=== PATIENT | female | born 1940 | race Caucasian/White ===

== ENCOUNTER → 2020-07-30 13:52 | Outpatient (CLI) | payer MEDICARE, SELFPAY ==
--- NOTE | 2020-07-30 14:03 | XR_ITS ---
PROCEDURE: XR CHEST 2V CLINICAL HISTORY: SOB COMPARISON: No exams were available for comparison FINDINGS: Mild cardiomegaly without failure. The upper trachea is slightly deviated toward the left. No lobar consolidation or collapse. On the lateral view there is focal increased density at the upper thoracic spine region possibly related overlying bony structures. Sclerotic lesion of the T3 or bony hypertrophy/osteophyte formation is a consideration. IMPRESSION: 1. Mild cardiomegaly. 2. Sclerotic density overlies the upper thoracic spine on the lateral view possibly due to summation artifact versus sclerotic lesion of T3. Chest CT may provide further evaluation if clinically warranted Dictated by: Kevyn Soriano MD 07/30/2020 14:48 Kevyn Soriano MD in [facility] 07/30/2020 14:48
== END ==
PROVIDERS: PCP Nurse Practitioner Family; Visit Provider Nurse Practitioner Family
DX: R06.02 Shortness of breath (principal)
CPT/HCPCS: 71046

== ENCOUNTER → 2020-09-03 09:43 | Outpatient (CLI) | payer MEDICARE, SELFPAY ==
[2020-09-03 10:30] VITALS: PULSE 78
== END ==
PROVIDERS: PCP Nurse Practitioner Family; Visit Provider Nurse Practitioner Family
DX: R06.02 Shortness of breath (principal)
CPT/HCPCS: 94060; 94640

== ENCOUNTER → 2020-09-05 12:44 | Outpatient (CLI) | payer MEDICARE, SELFPAY ==
--- NOTE | 2020-09-05 12:57 | CT_ITS ---
PROCEDURE: CT CHEST WO CON CLINICAL INDICATION: ABNORMAL CXR Follow-up abnormal chest x-ray, shortness of breath COMPARISON: CR XR CHEST 2V from 07/30/2020 TECHNIQUE: Axial images obtained with sagittal and coronal reformats. All CT scans at the facility use one or more dose reduction, viz: automated exposure control, ma/kV adjustment per patient size (including targeted exams where dose is matched to indication, i.e. head), or iterative reconstruction technique. FINDINGS: HEART AND MEDIASTINAL STRUCTURES: The right lobe of the thyroid gland is enlarged and heterogeneous and may be better evaluated with ultrasound. The trachea is somewhat shifted toward the left by approximately 7 mm due to the enlarged right lobe of the thyroid gland. The right lobe measures at least 4 cm cephalad caudad and 2.6 cm transverse. This could also be related to a thyroid mass. There is diffuse calcification of the aortic arch and there are coronary artery calcifications. The ascending aorta is 3.8 x 3.5 cm. There is mild cardiomegaly. No pericardial effusion apparent LUNGS AND PLEURAL SPACES: Scattered faint subpleural nodules are present in the right apex and in the right upper lobe posteriorly with some associated bronchial thickening. There are few faint nodular opacities in the right lower lobe posteriorly. Scattered faint opacities are present in the left lower lobe.. No lobar consolidation or collapse. No pleural effusions. BONY STRUCTURES: There is sclerosis of the endplates at T3-T4 with endplate osteophytes accounting for the radiographic abnormality. No pulmonary mass evident at this region. There are mild degenerative changes in the lower thoracic spine. There are few scattered small axillary lymph nodes. UPPER ABDOMEN: Unremarkable. ADDITIONAL FINDINGS: No other significant abnormalities. IMPRESSION: 1. Enlarged right lobe of the thyroid gland versus thyroid mass. Suggest ultrasound for further evaluation. 2. Prominent sclerosis of the endplates at T3-T4 with endplate osteophytes accounting for the radiographic abnormality. 3. Scattered faint small nodular opacities in the right upper lobe, right lower lobe, and left lower lobe. These are nonspecific and could be post inflammatory/infectious. One cannot exclude the possibility of small metastatic foci. Suggest 3 month follow-up to confirm stability. The Dictated by: Kevyn Soriano MD 09/06/2020 10:29 Kevyn Soriano MD in [facility] 09/06/2020 10:29
== END ==
PROVIDERS: PCP Nurse Practitioner Family; Visit Provider Nurse Practitioner Family
DX: R93.89 Abnormal findings on diagnostic imaging of other specified body structures (principal)
CPT/HCPCS: 71250

== ENCOUNTER → 2020-10-01 10:59 | Outpatient (CLI) | payer MEDICARE, SELFPAY ==
--- NOTE | 2020-10-01 11:02 | US_ITS ---
PROCEDURE: US THYROID CLINICAL INDICATION: ENLARGED THYROID COMPARISON: No exams were available for comparison FINDINGS: Thyroid echogenicity and echotexture is normal. In the right thyroid lobe there is a 2.3 centimeter complex cystic nodule longer than tall with no calcifications within it consistent with a TIRADS 3 lesion. In the right thyroid lobe there is also a solid nodule measuring 3.8 centimeters, which is longer than tall but has a few calcifications within it. This is consistent with a TIRADS 4 lesion. Ultrasound-guided fine needle aspiration of both of these nodules would be recommended. There are a few tiny cysts and a few small subcentimeter nodules in the left thyroid lobe. Thyroid isthmus region is normal. No abnormal vascularity. Right thyroid lobe measures 5.8 x 3.3 x 2.8 cm and the left thyroid lobe 3.2 x 1 x 1 cm. IMPRESSION: Two nodules in the right thyroid lobe, 1 measures 2.3 centimeters and is consistent with a TIRADS 3 lesion, the other measures 3.8 centimeters and is consistent with a TIRADS 4 lesion. Ultrasound-guided fine needle aspiration of both of the right thyroid lobe nodules is recommended. A few tiny cysts and a few small subcentimeter nodules in the left thyroid lobe. Dictated by: Justin Loredo 10/01/2020 12:00 Justin Loredo in [facility] 10/01/2020 12:00
== END ==
PROVIDERS: PCP Nurse Practitioner Family; Visit Provider Nurse Practitioner Family
DX: E04.9 Nontoxic goiter, unspecified (principal)
CPT/HCPCS: 76536

== ENCOUNTER → 2021-03-12 12:35 | Outpatient (CLI) | payer MEDICARE, SELFPAY ==
[2021-03-12 12:40] LABS: Adenovirus F 40/41, stool Not Detected (NotDetected); Astrovirus Not Detected (NotDetected); Campylobacter Not Detected (NotDetected); Clostridium Difficile A/B, PCR Not Detected (NotDetected); Cryptosporidium Not Detected (NotDetected); Cyclospora Cayetanesis Not Detected (NotDetected); Entamoeba histolytica Not Detected (NotDetected); Enteroaggregative E coli Not Detected (NotDetected); Enteropathogenic E coli Not Detected (NotDetected); Enterotoxigenic E coli Not Detected (NotDetected); Giardia lamblia Not Detected (NotDetected); Norovirus Not Detected (NotDetected); Plesimonas Shigalloides, PCR Not Detected (NotDetected); Rotavirus A Not Detected (NotDetected); Salmonella, PCR Not Detected (NotDetected); Sapovirus Not Detected (NotDetected); Shiga-like toxin E coli Not Detected (NotDetected); Shigella Enterovasive E coli Not Detected (NotDetected); Vibrio Cholerae Not Detected (NotDetected); Vibrio, PCR Not Detected (NotDetected); Yersinia Entercolitica, PCR Not Detected (NotDetected)
[2021-03-12 13:03] LABS: Basophils # 0.1 K/mm3 (0-0.2); Basophils % 0.8 % (0.1-2.0); Eosinophils # 0.2 K/mm3 (0.0-0.4); Eosinophils % 3.1 % (0.1-12.0); Hematocrit 37.2 % (37.0-47.0); Hemoglobin 12.2 g/dL (12.2-16.2); Lymphocytes # 1.8 K/mm3 (0.7-4.5); Lymphocytes % 25.1 % (10-50); Mean Corpuscular HGB Conc 32.8 g/dL (31.8-35.4); Mean Corpuscular Hemoglobin 28.8 pg (27.0-31.2); Mean Corpuscular Volume 87.9 fl (81-99); Mean Platelet Volume 8.3 fl (7.4-10.4); Monocytes # 0.6 K/mm3 (0.1-1.0); Monocytes % 8.1 % (1.7-9.3); Neutrophils # 4.4 K/mm3 (1.8-7.8); Neutrophils % 62.8 % (37.0-80.0); Platelet Count 289 K/mm3 (142-424); Red Blood Count 4.23 M/mm3 (4.20-5.40); Red Cell Distribution Width 15.4 % (11.5-17.5)
[2021-03-12 15:09] LABS: Albumin/Globulin Ratio 1.5 (1.1-1.8); Alkaline Phosphatase 81 U/L (38-126); Anion Gap 10.3 mEq/L (5-15); Aspartate Amino Transferase 20 U/L (14-36); Bilirubin,Total 0.6 mg/dl (0.2-1.3); Blood Urea Nitrogen 13 mg/dl (7-17); Calcium 8.9 mg/dl (8.4-10.2); Carbon Dioxide 31 mmol/L (22.0-30.0); Chloride 104 mmol/L (98-107); Estimated Glomerular Filt Rate 96 ml/min (>60); GFR (African American) 116 ML/MIN (>60); Globulin 2.7 g/dL (1.3-3.2); Glucose 99 mg/dl (74-100); Potassium 3.3 mmoL/L (3.5-5.1); Sodium 142 mmol/L (136-145); Total Protein,Serum 6.7 g/dl (6.3-8.2)
[2021-03-12 15:14] LABS: Alanine Aminotransferase < 4 U/L (12-78)
== END ==
PROVIDERS: Visit Provider Nurse Practitioner Family
DX: R19.7 Diarrhea, unspecified (principal)
CPT/HCPCS: 36415; 80053; 85025; 87506

== ENCOUNTER → 2021-03-22 15:46 | Outpatient (CLI) | payer MEDICARE, SELFPAY ==
[2021-03-25 13:16] LABS: C difficile Toxins AB, EIA Negative (Negative)
== END ==
PROVIDERS: Visit Provider Nurse Practitioner Family
DX: R19.7 Diarrhea, unspecified (principal)
CPT/HCPCS: 87045; 87205; 87324